=== PATIENT | male | born 1965 | race Caucasian/White ===

== ENCOUNTER 2016-10-09 21:58 | Emergency (ER) | payer OTHER ==
[~2016-10-09] VITALS: Ht 188 cm; Wt 102.8 kg
[~2016-10-09 21:58] MED LIST: ASPIRIN BUFFER325 MG PO; CIALIS2.5 MG; Cardizem CD,Cartia X PO; Coumadin,Jantoven PO; Lovenox SC
[2016-10-09 22:40] LABS: HEMATOCRIT 48.1 % (38.0-50.0); MCHC 33.9 G/DL (30.0-36.0); MCV 91.6 FL (86-99); MEAN PLAT.VOLUME 9.9 uM^3 (9.0-12.4); PLATELET COUNT 222 K/uL (156-360); RBC DIS.WIDTH-CV 12.1 % (11.8-14.6); RBC DIS.WIDTH-SD 41.1 % (39-53); RED BLOOD COUNT 5.25 M/uL (4.00-5.50); WHITE BLOOD COUNT 8.5 K/uL (4.1-10.2)
[2016-10-09 22:50] LABS: CHLORIDE 106 mEq/L (99-109); SODIUM 137 mEq/L (136-147)
[2016-10-09 22:51] LABS: GLUCOSE 107 mg/dL (70-99)
[2016-10-09 22:53] LABS: ANION GAP 7 MEQ/L (2-14)
[2016-10-09 22:54] LABS: INTER. NORMALIZED RATIO 1.1; PROTHROMBIN TIME 11.1 (9.2-11.2); PTT 25.1 (25-32)
[2016-10-09 22:55] LABS: GFR ESTIMATE (CALCULATED) > 59 mL/min/
[2016-10-09 22:56] LABS: UREA NITROGEN (BUN) 17 mg/dL (9-23)
[2016-10-09 23:02] LABS: TROP-I INTERPRETATION NEGATIVE; TROPONIN-I < 0.01 ng/mL (0.0-0.30)
[2016-10-09 23:11] LABS: POTASSIUM 3.7 mEq/L (3.7-5.4)
[2016-10-10 01:02] VITALS: BP 124/76
== END 2016-10-10 01:05 | disposition home or self-care (01) ==
LOC: EME 21:58
PROVIDERS: Emergency Medicine
DX: I48.0 Paroxysmal atrial fibrillation (principal); D68.2 Hereditary deficiency of other clotting factors; Z79.01 Long term (current) use of anticoagulants; Z87.442 Personal history of urinary calculi; Z86.718 Personal history of other venous thrombosis and embolism
CPT/HCPCS: 71010; 80048; 84443; 84484; 85027; 85610; 85730; 93005; 99281; 99285; J7030